=== PATIENT | male | born 1970 | race Caucasian/White ===

== ENCOUNTER 2023-06-30 10:11 | Emergency (ER) | payer OTHER, SELFPAY ==
[2023-06-30 10:10] VITALS: BP 179/117; PULSE 88; RESP 16; TEMP 37.3; O2SAT 98
--- NOTE | 2023-06-30 10:30 | DI.US_ITS ---
Exam(s) US RENAL EXAM: US RENAL CLINICAL HISTORY: pain s/p bilateral uretral stents. TECHNIQUE: Meneses scale, color and spectral Doppler were used. COMPARISON: No exams were available for comparison FINDINGS: Renal size in cm: Right: 14.2. Left: 12. Echogenicity: Normal. Hydronephrosis: There is very mild dilatation of the right renal collecting system. Cyst or mass: No. Nephrolithiasis: There are 2 echogenic foci seen within the right kidney likely reflecting stones. E ach stone measures 4 mm. Other findings: None. Bladder:The urinary bladder is not well distended limiting evaluation. No gross abnormality is ident ified. Ureteral jets: Right: Not visualized on this examination. Left: Not visualized on this examination. Prevoid vol:41 cc Postvoid vol:Not obtained on this examination. Prostate: 18 cc Renal color flow: Symmetric and within normal limits. IMPRESSION: Right nephrolithiasis. Minimal right hydronephrosis. DATA REPOSITORY:
--- NOTE | 2023-06-30 10:46 | ED.GENADUL_ITS ---
Discharge Plan Disposition Patient Disposition: Home Condition: Good Discharge Details Clinical Impression: Post-op pain, S/P ureteral stent placement, Urinary tract infection Primary Care Provider: [facility] ED Provider: Lisa Zapata Home Meds and New Rx's Prescriptions: New cephalexin 500 mg capsule 500 mg PO QID Qty: 40 0RF Rx Instructions: for 10 days No Action atorvastatin 80 mg Tablet 80 mg PO DAILY aspirin 81 mg Tablet 81 mg PO DAILY lisinopril 40 mg Tablet 40 mg PO DAILY Fish Oil 1,000 mg Capsule 1 cap PO DAILY famotidine 40 mg Tablet 1 mg DAILY amlodipine 5 mg Tablet 1 mg PO DAILY tamsulosin 0.4 mg Capsule 0.4 mg PO DAILY pantoprazole 40 mg Tablet,Delayed Release (Dr/Ec) 40 mg PO DAILY mupirocin 2 % Ointment 1 applic TOPICAL BID paroxetine HCl 40 mg Tablet 1 mg PO DAILY lamotrigine 100 mg Tablet 1 mg PO DAILY vitamin B complex Capsule 1 cap PO DAILY duloxetine 20 mg Capsule,Delayed Release(Dr/Ec) 1 mg PO DAILY melatonin 5 mg Capsule 1 mg DAILY turmeric 400 mg Capsule 400 mg PO DAILY Discharge Instructions Instructions: Urinary Tract Infection in Men (ED) Additional Instructions: Take the antibiotic we have prescribed 4 times a day for the next 10 days. Tylenol and ibuprofen over the counter as needed for pain; follow the directions on the bottle. Call your urologist today to discuss your visit here and to schedule a follow up visit within the next 48 hours. Call your primary care doctor today to schedule an appointment to follow up on your blood pressure which is high here. Return to the emergency department for new worsening symptoms including fever, intolerable pain, or if you have any other concerns. Medical Decision Making 52yo M with history of HTN, PTSD, complex pain syndrome, bilateral kidney stones s/p bilateral uretral stent placement [place]23 [place] the [place] presenting for flank pain and hematuria. History from patient and EMS. Hypertensive on arrival, vital signs otherwise reassuring. Not septic. Physical exam reassuring with no CVA tenderness; non-toxic appearing and not in acute distress. Appears comfortable s/p 1g IV tylenol from EMS; reports pain is improved, still 5/10. Given IV toradol here as well as home BP meds. Labs reviewed as below, CBC & CMP reassuring, no anemia, mild leukocytosis to 12.5. UA +nitrate +leuk esterace +WBC +RBC, unclear significance in post-op setting. Urine sent for culture. Renal ultrasound independently reviewed, mild right hydronephrosis, agree with radiology read below. No stent occlusion. On reassessment patient remains non-toxic appearing, pain improved s/p toradol. Remains hypertensive; unknown baseline, advised to followup with his PCP for this. Discussed with on- call urologist [place] the [place] and decision to treat for possible UTI given +nitrate; will follow up in the office. Discharged on 10 day course of keflex. Discharged home; discharge instructions including return precautions were reviewed with patient who verbalized understanding. All questions were answered and they are in full agreement with the plan. Imaging Data Radiologic Study: Imaging: Ultrasound Radiologist's impression: IMPRESSION: Right nephrolithiasis.? Minimal right hydronephrosis.? Lab Data Lab results reviewed: Yes I reviewed the patient's lab results. Labs: 06/30/23 10:59 Urine - Reflex from Ua Urine Culture - Pending Laboratory Tests Range/Units 06/30/23 06/30/23 06/30/23 10:53 10:53 10:59 WBC (4.4-10.8) 10^3/uL 12.50 H RBC (4.36-5.78) 10^6/uL 4.49 Hgb (13.5-17.5) g/dL 14.0 Hct (40.0-50.0) % 41.1 MCV (80-95) fL 92 MCH (27.0-33.0) pg 31.2 MCHC (32.0-36.0) % 34.1 RDW (11.8-14.1) % 13.1 Plt Count (130-400) 10^3/uL 273 MPV (8.0-11.0) fL 9.2 Immature Gran % 0.6 Neutrophils % 68.4 Lymphocytes % 21.1 Monocytes % 8.8 Eosinophils % 0.6 Basophils % 0.5 Nucleated RBC % (0.0-0.3) % 0.0 Absolute Neutrophils (1.2-6.7) 10^3/uL 8.55 H Absolute Lymphocytes (1.2-3.4) 10^3/uL 2.64 Absolute Monocytes (0.1-0.8) 10^3/uL 1.10 H Absolute Eosinophils (0.0-0.7) 10^3/uL 0.08 Absolute Basophils (0.0-0.2) 10^3/uL 0.06 Sodium (136-145) mmol/L 140 Potassium (3.5-5.1) mmol/L 3.3 L Chloride (98-107) mmol/L 103 Carbon Dioxide (21.0-32.0) mmol/L 29.5 Anion Gap (3-11) mmol/L 7.5 BUN (7-18) mg/dL 15 Creatinine (0.70-1.30) mg/dL 1.0 Est GFR (CKD-EPI 2020) (mL/min/1.73m2) 90.56 Glucose (74-106) mg/dL 91 Calcium (8.5-10.1) mg/dL 9.0 Total Bilirubin (0.2-1.0) mg/dL 0.9 AST (15-37) U/L 17 ALT (16-63) U/L 43 Alkaline Phosphatase (46-116) U/L 96 Total Protein (6.4-8.2) g/dL 7.5 Albumin (3.4-5.0) g/dL 4.1 Urine Color (Yellow) Red Urine Clarity (Clear) Cloudy Urine pH (5-8) 8.5 H Ur Specific [place] (1.005-1.025) 1.020 Urine Protein (Negative) mg/dL >=300 H Urine Ketones (Negative) mg/dL 15 H Urine Blood (Negative) Large H Urine Nitrite (Negative) Positive H Urine Bilirubin (Negative) Moderate H Urine Urobilinogen (Up to 0.2) mg/dL 2.0 H Ur Leukocyte Esterase (Negative) Large H Urine RBC (0-2) HPF >50 H Urine WBC (0-5) HPF >50 H Ur Epithelial Cells (Negative) HPF Negative Urine Crystals (Negative) HPF Negative Urine Bacteria (Negative) HPF Many Urine Casts (Negative) LPF Negative Urine Mucus (Negative) Negative Urine Other (Negative) Negative Ur Culture Indicated? Yes Urine Glucose (Negative) mg/dL Negative HPI General Mode of arrival: EMS . Date/Time Provider Initiated Documentation: 06/30/23 10:20 . Limitations to Documentation: no limitations . Information obtained by: patient . HPI Narrative: 52yo M with history of HTN, PTSD, complex pain syndrome, bilateral kidney stones s/p bilateral uretral stent placement [place] presenting for flank pain and hematuria. He was told he would have minor pain and pink-tinged urine, pain has been severe and urine is dark brown. No difficulty voiding. Pain is crampy, intermittent, and worse when voiding. Not pleuritic. Currently 5/10 after IV tylenol from EMS. Mild nausea when pain is severe, no vomiting. He is otherwise in his usual state of health with no fevers, chills, rash, abdominal pain, chest pain, shortness of breath, urinary incontinence, or other concerns. Related Data Home Medications Medication Instructions Recorded Confirmed amlodipine 5 mg tablet 1 mg PO DAILY 06/30/23 06/30/23 aspirin 81 mg tablet 81 mg PO DAILY 06/30/23 06/30/23 atorvastatin 80 mg tablet 80 mg PO DAILY 06/30/23 06/30/23 cephalexin 500 mg capsule 500 mg PO QID #40 caps 06/30/23 duloxetine 20 mg capsule,delayed 1 mg PO DAILY 06/30/23 06/30/23 release famotidine 40 mg tablet 1 mg DAILY 06/30/23 06/30/23 lamotrigine 100 mg tablet 1 mg PO DAILY 06/30/23 06/30/23 lisinopril 40 mg tablet 40 mg PO DAILY 06/30/23 06/30/23 melatonin 5 mg capsule 1 mg DAILY 06/30/23 06/30/23 mupirocin 2 % topical ointment 1 applic topical BID 06/30/23 06/30/23 omega-3 fatty acids-vitamin E 1 cap PO DAILY 06/30/23 06/30/23 1,000 mg capsule pantoprazole 40 mg tablet,delayed 40 mg PO DAILY 06/30/23 06/30/23 release paroxetine HCl 40 mg tablet 1 mg PO DAILY 06/30/23 06/30/23 tamsulosin 0.4 mg capsule 0.4 mg PO DAILY 06/30/23 06/30/23 turmeric 400 mg capsule 400 mg PO DAILY 06/30/23 06/30/23 vitamin B complex 1 cap PO DAILY 06/30/23 06/30/23 Previous Rx's Medication Instructions Recorded cephalexin 500 mg capsule 500 mg PO QID #40 caps 06/30/23 Allergies Allergy/AdvReac Type Severity Reaction Status Date / Time No Known Allergies Allergy Unverified 06/30/23 11:44 General Stated Complaint: Urinary KISHA: 3 Review of Systems Narrative: see HPI PFSH All Active Problems (Updated 06/30/23 @ 15:11 by Lisa Zapata MD) Post-op pain (Acute) S/P ureteral stent placement (Acute) Urinary tract infection (Acute) Social History Smoking/Tobacco Use Status: Never Smoking risk assessment performed?: Yes Exam Narrative Exam Narrative: General: Alert, well appearing, well nourished, in no acute distress. Head: Normocephalic, atraumatic Neck: Trachea midline, Neck supple. ENT: MMM. Cardiac: RRR, no murmurs appreciated Resp: No respiratory distress. CTAB. Abd: Soft, non-distended, nontender : No suprapubic tenderness. No CVA tenderness. Extremities: No deformities. No peripheral edema. Neurologic: GCS 15. Moves all extremities freely against gravity Course Vital Signs Vital signs: Vital Signs Temperature 37.3 C 06/30/23 10:10 Pulse 88 06/30/23 10:10 Respiratory Rate 16 06/30/23 10:10 Blood Pressure 179/117 H 06/30/23 10:10 Pulse Oximetry 98 06/30/23 10:10 Temperature 37.3 C 06/30/23 10:10 Temperature Source Skin 06/30/23 10:10 Pulse 88 06/30/23 10:10 Respiratory Rate 16 06/30/23 10:10 Blood Pressure 179/117 H 06/30/23 10:10 Blood Pressure Position Sitting 06/30/23 10:10 Pulse Oximetry 98 06/30/23 10:10 Oxygen Delivery Method Room Air 06/30/23 10:10 Oxygen Flow Rate 0 06/30/23 10:10 Pain Level 5 06/30/23 10:10
[2023-06-30] MEDS: Ketorolac 15 MG/ML VIAL IVP (10:55)
[2023-06-30 10:58] LABS: Abs Immature Grans 0.08 10^3/uL (0.0-0.06); Absolute Basophil Count 0.06 10^3/uL (0.0-0.2); Absolute Lymphocyte Count 2.64 10^3/uL (1.2-3.4); Absolute Neutrophil Count 8.55 10^3/uL (1.2-6.7); Basophils % 0.5; Eosinophils % 0.6; HCT 41.1 % (40.0-50.0); Immature Grans % 0.6; Lymphocytes % 21.1; MCH 31.2 pg (27.0-33.0); MCHC 34.1 % (32.0-36.0); MCV 92 fL (80-95); MPV 9.2 fL (8.0-11.0); Monocytes % 8.8; Neutrophils % 68.4; Platelet Count 273 10^3/uL (130-400); RBC 4.49 10^6/uL (4.36-5.78); RDW 13.1 % (11.8-14.1); RDW-SD 44.4 fL
[2023-06-30 10:59] LABS: Absolute Eosinophil Count 0.08 10^3/uL (0.0-0.7)
[2023-06-30 11:12] LABS: Bilirubin Moderate (Negative); Blood Large (Negative); Clarity Cloudy (Clear); Glucose Negative (Negative); Ketones 15 mg/dL (Negative); Leukocyte Esterase Large (Negative); Nitrite Positive (Negative); pH 8.5 (5-8)
[2023-06-30 11:13] LABS: ALT 43 U/L (16-63); AST 17 U/L (15-37); Albumin 4.1 g/dL (3.4-5.0); Alkaline Phosphatase 96 U/L (46-116); Anion Gap 7.5 mmol/L (3-11); BUN 15 mg/dL (7-18); Bilirubin, Total 0.9 mg/dL (0.2-1.0); CO2 29.5 mmol/L (21.0-32.0); Chloride 103 mmol/L (98-107); Estimated GFR 90.56 (mL/min/1.73m2); Glucose 91 mg/dL (74-106); Potassium 3.3 mmol/L (3.5-5.1); Sodium 140 mmol/L (136-145); Total Protein 7.5 g/dL (6.4-8.2)
[2023-06-30 11:18] LABS: Bacteria Many HPF (Negative); C & S Indicated? Yes; Casts Negative LPF (Negative); Crystals Negative HPF (Negative); Epithelial Cells Negative HPF (Negative); Mucus Negative (Negative); Other Cells Negative (Negative); RBC >50 HPF (0-2); WBC >50 HPF (0-5)
--- NOTE | 2023-06-30 12:21 | NUR.NOTE ---
Medication list requested from the [facility]
[2023-06-30 13:11] VITALS: BP 186/113; PULSE 87; TEMP 37.2; O2SAT 96
[2023-06-30] MEDS: Lisinopril 20 MG TAB 40 MG PO (14:38)
[2023-06-30] MEDS: amLODIPine 2.5 MG TAB 1 MG PO (14:39)
[2023-06-30 15:00] VITALS: BP 185/124
[2023-06-30] MEDS: Cephalexin 500 MG CAP PO (15:11)
[2023-06-30 15:57] VITALS: BP 208/110; PULSE 86; O2SAT 98
== END 2023-06-30 15:56 | disposition home or self-care (01) ==
PROVIDERS: Emergency Provider Student in an Organized Health Care Education/Training Program
DX: G89.18 Other acute postprocedural pain; N39.0 Urinary tract infection, site not specified; I10 Essential (primary) hypertension; R10.9 Unspecified abdominal pain; Z96.0 Presence of urogenital implants; Z87.442 Personal history of urinary calculi; R31.9 Hematuria, unspecified
CPT/HCPCS: 76770; 80053; 96374; 99284; 81003; 81015; 85025; 87086; J1885

== ENCOUNTER 2023-09-17 16:46 | Outpatient (REF) | payer OTHER, SELFPAY ==
--- NOTE | 2023-09-17 10:45 | SKI_PTH ---
PATIENT: Carlitos Wiklins LOC: [facility] U#:[id number] AGE/SX: 52/M ROOM: RE09/17/[address]: Myles Kimble DO : 1970 BED: DIS: 09/17/2023 SPEC #: [id number] RECD: 09/20/23 12:44 STATUS: GORDO REQ #: [id number] ROC: 09/17/23 10:[address]: Myles Kimble DEPT: Surgical Specimen RECD BY: Charleen Blake ENTERED: 09/20/23 12:44 SP TYPE: SKI OTHR DR: Sangeeta Fields Tissues: 1 - SKIN BIOPSY(SHAVE/PUNCH) Procedures: SKIN LEVEL 4 Comments: [id number]
== END 2023-09-17 16:47 | disposition home or self-care (01) ==
LOC: LBN 16:46
PROVIDERS: PCP Nurse Practitioner Family; Visit Provider Otolaryngology Otolaryngology/Facial Plastic Surgery
DX: D22.5 Melanocytic nevi of trunk (principal)
CPT/HCPCS: 88305

== ENCOUNTER 2024-11-14 16:58 | Emergency (ER) | payer OTHER, SELFPAY ==
[2024-11-14 17:01] VITALS: BP 143/68; PULSE 72; RESP 16; TEMP 36.8; O2SAT 99
[2024-11-14 17:07] VITALS: BP 143/68; PULSE 72; RESP 16; TEMP 36.8; O2SAT 99
--- NOTE | 2024-11-14 17:45 | RT.EKG_ITS ---
APPROVED REPORT Exam: Resting ECG Reason for Exam: Chest tightness, hx of KS Patient Location: E HR:66 bpm ECG Measurements Heart Rate 66 AXIS NJ 171 P 40 QRSd 104 QRS 40 QT 439 T 39 QTc 460 Conclusion Sinus rhythm...normal P axis, V-rate 60- [address] segment or T wave abnormalities to suggest occlusive KS
[2024-11-14 17:47] LABS: COVID-19 PCR Negative (Negative); Influenza A PCR Positive (Negative); Influenza B PCR Negative (Negative); RSV PCR Negative (Negative)
[2024-11-14 17:50] LABS: Source Nasopharynx
--- NOTE | 2024-11-14 18:13 | ED.GENADUL_ITS ---
Discharge Plan Disposition Patient Disposition: Home Condition: Stable Discharge Details Clinical Impression: Influenza A Primary Care Provider: Sangeeta Fields ED Provider: Jailyn Winston Home Meds and New Rx's Prescriptions: Continued lamotrigine 100 mg tablet 50 - 100 mg PO TID Rx Instructions: takes whole tab in am and pm and half tab at noon melatonin 5 mg capsule 5 mg PO DAILY paroxetine HCl 40 mg tablet 40 mg PO DAILY famotidine 40 mg tablet 40 mg PO DAILY mupirocin 2 % Ointment 1 applic TOPICAL BID Discharge Instructions Instructions: Flu, Adult ED Additional Instructions: You have tested positive for influenza A. Please continue to take [id number] cough and cold medicines as directed, increase oral fluids, gargle with warm salt water. Use the albuterol inhaler 1 or 2 puffs every 4-6 hours as needed for chest tightness and shortness of breath. EKG looked within normal limits chest x-ray shows no pneumonia. Follow up with primary care provider in 3-5 days. Return to ED sooner if any worsening lightheadedness dizziness, chest pain, nausea or concerns. Please take Tylenol or Ibuprofen with food every 4-6 hours as needed for pain and swelling. Stand Alone Forms: Work Release Referrals: Sangeeta Fields [Primary Care Provider] - 2 weeks HPI General Mode of arrival: ambulatory . Date/Time Provider Initiated Documentation: 11/14/24 17:09 . Limitations to Documentation: no limitations . Information obtained by: patient, RN notes reviewed and old records reviewed . HPI Narrative: 54-year-old male presents to the ER with chest tightness, cough, throat pain fever chills body aches for the last week. He also reports increased dizziness and lightheadedness. Increase daily fatigue. He does have a history of OR at age 48, PTSD, hypertension and hyperlipidemia. He states that he takes for blood pressure medications. However on his list here only noted is melatonin lamotrigine for the motivating mupirocin and paroxetine. Related Data Home Medications ?Medication ?Instructions ?Recorded ?Confirmed mupirocin 2 % topical ointment 1 applic topical BID 06/30/23 11/14/24 famotidine 40 mg tablet 40 mg PO DAILY 09/08/23 11/14/24 lamotrigine 100 mg tablet 50 - 100 mg PO TID 09/08/23 11/14/24 melatonin 5 mg capsule 5 mg PO DAILY 09/08/23 11/14/24 paroxetine HCl 40 mg tablet 40 mg PO DAILY 09/08/23 11/14/24 Allergies Allergy/AdvReac Type Severity Reaction Status Date / Time No Known Allergies Allergy Unverified 11/14/24 17:08 General Stated Complaint: RespSymp KISHA: 4 Review of Systems All systems reviewed & are unremarkable except as noted in HPI and below Constitutional Constitutional: Reports body ache(s) and Reports headache(s) ENT Ears, Nose, Mouth, and Throat: Reports as per HPI, Reports headache(s) and Reports sore throat Cardiovascular Cardiovascular: Reports chest pain and Reports dyspnea Respiratory Respiratory: Reports cough and Reports dyspnea Neurologic Neurologic: Reports headache(s) Exam Narrative Exam Narrative: Constitutional: Alert and oriented x3. Appears stated age. Normal body habitus. Head: Normocephalic, no trauma. Eyes: Pupils PERRL, Red reflex noted, EOM's intact. Eyelids symmetrical without lesions, discharge, or swelling. ENT: Bilateral TM's WNL, External ear normal to inspection, no mastoid TTP, swelling, or erythema, Nasal turbinates WNL, no nasal discharge. Normal dentition, Posterior pharynx WNL, no exudate. Chest: RRR, Normal S1, S2, distal pulses intact. Resp: Lungs clear to auscultation bilaterally, no wheezes, rales, or rhonchi. Abdomen: Soft, non-distended, Normoactive bowel sounds all 4 quads. Musculoskeletal: Normal gait, Moves all 4 extremities without difficulty. Skin: No suspicious rashes or lesions. Capillary refill less than 2 sec. Neurologic: Cranial nerves II-XII intact. Alert and oriented x 3. Motor: No deficits noted. Sensory: Intact bilaterally all 4 extremities. Hematologic/Lymphatic: No ecchymosis, no lymphadenopathy. Course Vital Signs Vital signs: Vital Signs Temperature 36.8 C 11/14/24 17:01 Pulse 72 11/14/24 17:01 Respiratory Rate 16 11/14/24 17: Blood Pressure 143/68 H 11/14/24 17:01 Pulse Oximetry 99 11/14/24 17:01 Temperature 36.8 C 11/14/24 17:07 Pulse 72 11/14/24 17:07 Respiratory Rate 16 11/14/24 17:07 Blood Pressure 143/68 H 11/14/24 17:07 Pulse Oximetry 99 11/14/24 17:07 Oxygen Delivery Method Room Air 11/14/24 17:07 Oxygen Flow Rate 0 11/14/24 17:07 Pain Level 0 11/14/24 17:07 Lab/Test Results Lab/Test Results: Laboratory Tests Range/Units 11/14/24 17:07 COVID-19 Source Nasopharynx SARS-CoV-2 (PCR) (Negative) Negative Influenza Type A (PCR) (Negative) Positive A Influenza Type B (PCR) (Negative) Negative RSV (PCR) (Negative) Negative Medical Decision Making 54-year-old male presents to the ER with chest tightness, cough, throat pain fever chills body aches for the last week. He also reports increased dizziness and lightheadedness. Increase daily fatigue. He does have a history of OR at age 48, PTSD, hypertension and hyperlipidemia. He states that he takes for blood pressure medications. However on his list here only noted is melatonin lamotrigine for the motivating mupirocin and paroxetine. He is flu a positive. EKG ordered due to reported cardiac history and chest tightness, chest x-ray ordered. EKG was reviewed by [myself and Catalina Hernández ER attending, no old EKG available for review normal sinus rhythm no ectopy. x-ray within normal limits. Plan is to discharge patient home. Discussed at length home care patient is asking about some posterior occipital scalp pain does have a history of a bulging disc in his C-spine. No midline pain with palpation. Did discuss home care follow-up care strict return instructions. All his questions were answered to the best my ability he verbalized understanding. This text was generated using [employer] system, please disregard any oddities of phrase or misspellings. Lab Data Lab results reviewed: Yes I reviewed the patient's lab results. Labs: Laboratory Tests Range/Units 11/14/24 17:07 COVID-19 Source Nasopharynx SARS-CoV-2 (PCR) (Negative) Negative Influenza Type A (PCR) (Negative) Positive A Influenza Type B (PCR) (Negative) Negative RSV (PCR) (Negative) Negative Quality:SDOH Health Related Social Needs: No Data to Display PFSH All Active Problems (Updated 11/14/24 @ 18:28 by Jailyn Winston NP) Influenza A (Acute) Skin lesion (Acute) BiPAP (biphasic positive airway pressure) dependence (Acute) Nasal turbinate hypertrophy (Acute) Nasal obstruction (Acute) Acquired deviated nasal septum (Acute) Sleep apnea syndrome (Acute) Medical History (Updated 11/14/24 @ 18:28 by Jailyn Winston NP) Scars Osteomalacia Traumatic arthritis Fibromyalgia Tinnitus Bursitis Degenerative arthritis of spine Migraine headache PTSD (post-traumatic stress disorder) Social History Smoking/Tobacco Use Status: Never Smoking risk assessment performed?: Yes Alcohol Intake: former Drug use: Never Substance use type: does not use Do you feel safe at home: Yes Do you feel safe in your relationship?: Yes
--- NOTE | 2024-11-14 18:17 | DI.RAD_ITS ---
Exam(s) XR CHEST 2V PA LATERAL EXAM: XR CHEST 2V PA LATERAL CLINICAL HISTORY: URI/Cough TECHNIQUE: 2D digital imaging was performed. Two views. COMPARISON: No exams were available for comparison FINDINGS: HEART: Normal size. Aorta: Not dilated. PULMONARY VASCULATURE: Normal. MEDIASTINUM: Unremarkable. LUNGS: Clear. PLEURAL SPACE: No pleural effusion or pneumothorax. BONE:Unremarkable for age. SOFT TISSUES: Unremarkable. IMPRESSION: No acute abnormality. DATA REPOSITORY: RADIATION DOSE DELIVERED:
[2024-11-14] MEDS: Albuterol HFA 8 GM 60 PUFF INH IH (19:07)
== END 2024-11-14 19:07 | disposition home or self-care (01) ==
PROVIDERS: Student in an Organized Health Care Education/Training Program; Emergency Provider Registered Nurse Emergency; PCP Nurse Practitioner Family
DX: J10.1 Influenza due to other identified influenza virus with other respiratory manifestations (principal)
CPT/HCPCS: 87637; 93005; 99284; 71046; 93010